=== PATIENT | male | born 1965 | race African-American/Black ===

== ENCOUNTER 2018-07-06 09:29 | Inpatient (IN) | payer OTHER ==
[2018-07-06 09:49] VITALS: BMI 25.4
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
[2018-07-06] MEDS ORDERED: hydrOXYzine PAMOATE 25 MG CAPSULE (FP) PO PRN (11:48)
[2018-07-06] MEDS ORDERED: chlordiazePOXIDE HCL 10 MG CAPSULE PO PRN (11:48)
[2018-07-06] MEDS ORDERED: MAGNESIUM CITRATE 300 ML BOTTLE PO PRN (11:48)
[2018-07-06] MEDS ORDERED: MENTHOL/PHENOL 1 EACH UD MM PRN (11:48)
[2018-07-06] MEDS ORDERED: ACETAMINOPHEN 325 MG TABLET (FP) PO PRN ×2 (11:48)
[2018-07-06] MEDS ORDERED: MAG HYDROX/AL HYDROX/SIMETH 30 ML UNIT-DOSE CUP PO PRN (11:48)
[2018-07-06] MEDS ORDERED: METHOCARBAMOL 500 MG TABLET PO PRN (11:48)
[2018-07-06] MEDS ORDERED: MELATONIN 5 MG TABLETS PO PRN (11:48)
[2018-07-06] MEDS ORDERED: BISMUTH SUBSALICYLATE 524 MG/30 ML UD PO PRN (11:48)
[2018-07-06] MEDS ORDERED: MAGNESIUM HYDROX 2400MG/30ML ORAL SUSPENSION 30 ML CUP PO PRN (11:48)
[2018-07-06] MEDS ORDERED: IBUPROFEN 400 MG TABLET (FP) PO PRN (11:48)
[2018-07-06] MEDS: THIAMINE HCL 100 MG TABLET (FP) PO SCH (22:59)
[2018-07-06] MEDS: chlordiazePOXIDE HCL 25 MG CAPSULE PO SCH (22:59)
[2018-07-07] MEDS: chlordiazePOXIDE HCL 25 MG CAPSULE PO SCH ×2 (05:09→14:07)
[2018-07-07] MEDS ORDERED: PRENATAL VITAMINS W/ FOLIC ACID TABLET (FP) PO SCH (10:00)
[2018-07-07 10:16] LABS: HEMATOCRIT 40.1 % (35.4-49); HEMOGLOBIN 13.9 GM/dL (11.7-16.9); MCH 35.1 pg (25.7-33.7); MCHC 34.7 g/dl (32.0-35.9); MEAN CELL VOLUME 101.1 fl (80-96); MEAN PLT VOLUME 10.3 fl (7.5-11.1); PLATELET COUNT 165 K/MM3 (134-434); RBC 3.96 M/mm3 (4.00-5.60); RDW 13.2 % (11.9-15.9); WHITE BLOOD COUNT 4.6 K/mm3 (4.0-10.0)
[2018-07-07 10:51] LABS: ALBUMIN 3.9 g/dl (3.4-5.0); ALK PHOS 114 U/L (45-117); ANION GAP 8 MMOL/L (8-16); BILIRUBIN,TOTAL 0.5 mg/dL (0.2-1); BLOOD UREA NITROGEN 21 mg/dL (7-18); CALCIUM 8.6 mg/dL (8.5-10.1); CHLORIDE 103 mmol/L (98-107); CO2 28 mmol/L (21-32); CREATININE 1.1 mg/dL (0.55-1.3); GLUCOSE,RANDOM 110 mg/dL (74-106); POTASSIUM 4.1 mmol/L (3.5-5.1); SGOT/AST 14 U/L (15-37); SGPT/ALT 15 U/L (13-61); SODIUM 138 mmol/L (136-145); TOT PROT 7.4 g/dl (6.4-8.2)
--- NOTE | 2018-07-07 13:36 | PN ---
[facility] CIWA - CIWA Score Nausea/Vomitin-No Nausea/No Vomiting Muscle Tremors: None Anxiety: 3 Agitation: 1-Slight > Activity Paroxysmal Sweats: 3 Orientation: 0-Oriented Tacttile Disturbances: 2-Mild Itch/Numbness/Burn Auditory Disturbances: 0-None Visual Disturbances: 2-Mild Sensitivity Headache: 0-None Present CIWA-Ar Total Score: 11 S Progress Note (SOAP) Subjective: Sweating, Itching, Interrupted Sleep. Objective: PATIENT A & O X 3, OBSERVED AMBULATING ON UNIT. IN NO ACUTE DISTRESS. 07/07/18 13:34 Vital Signs Temperature 97.5 F L 07/07/18 09:35 Pulse Rate 82 07/07/18 09:35 Respiratory Rate 18 07/07/18 09:35 Blood Pressure 131/83 07/07/18 09:35 O2 Sat by Pulse Oximetry (%) Laboratory Tests 07/07/18 07/07/18 07/07/18 07:40 07:40 07:40 WBC 4.6 RBC 3.96 L Hgb 13.9 Hct 40.1 MCV 101.1 H MCH 35.1 H MCHC 34.7 RDW 13.2 Plt Count 165 MPV 10.3 Sodium 138 Potassium 4.1 Chloride 103 Carbon Dioxide 28 Anion Gap 8 BUN 21 H Creatinine 1.1 Creat Clearance w eGFR > 60 Random Glucose 110 H Calcium 8.6 Total Bilirubin 0.5 AST 14 L ALT 15 Alkaline Phosphatase 114 Total Protein 7.4 Albumin 3.9 HIV 1&2 Antibody Screen Negative HIV P24 Antigen Negative LABS NOTED. RPR RESULT PENDING. 07/07/18 13:34 Assessment: 07/07/18 13:34 WITHDRAWAL SYMPTOMS. Plan: CONTINUE DETOX. INCREASE DAILY PO FLUID INTAKE. PATIENT REPORTS THAT HE IS TOLERATING CURRENT WITHDRAWAL / DETOX SYMPTOMS WELL THUS FAR. AT PATIENT'S REQUEST, CURRENT DETOX MEDICATION REGIMEN (LIBRIUM) MODIFIED SO THAT PATIENT MAY BE DISCHARGED ON 07/09/2018.
[2018-07-07 19:43] LABS: URINE APPEARANCE CLEAR; URINE BILIRUBIN NEGATIVE (<2.0 mg/dL); URINE COLOR YELLOW; URINE GLUCOSE (UA) NEGATIVE (NEGATIVE); URINE KETONE NEGATIVE (NEGATIVE); URINE LEUK ESTERASE NEGATIVE (NEGATIVE); URINE NITRITE NEGATIVE (NEGATIVE); URINE PROTEIN NEGATIVE (NEGATIVE); URINE UROBILINOGEN 4.0 E.U/dl mg/dL (0.2-1.0)
[2018-07-07] MEDS: chlordiazePOXIDE 5 MG CAPSULE PO SCH (22:39)
[2018-07-07] MEDS: THIAMINE HCL 100 MG TABLET (FP) PO SCH (22:39)
[2018-07-08] MEDS: chlordiazePOXIDE 5 MG CAPSULE PO SCH (05:43)
[2018-07-08] MEDS ORDERED: ALBUTEROL SO4 8 GM HFA INHALER IH PRN (08:48)
[2018-07-08 09:29] VITALS: BP 126/85; PULSE 97; TEMP 98.6
--- NOTE | 2018-07-08 11:47 | PN ---
[facility] CIWA - CIWA Score Nausea/Vomitin-No Nausea/No Vomiting
--- NOTE | 2018-07-08 11:48 | DS ---
[facility] Detox Discharge Summary Admission Date: 07/06/18 Discharge Date: 07/08/18 - History Present History: Alcohol Dependence Additional Comments: 52 years old male admitted on 07/06/18 for alcohol withdrawal stabilization feeling better today preferred return home today - Physical Exam Results Vital Signs: Vital Signs Temperature 98.6 F 07/08/18 09:28 Pulse Rate 97 H 07/08/18 09:28 Respiratory Rate 20 07/08/18 09:28 Blood Pressure 126/85 07/08/18 09:28 O2 Sat by Pulse Oximetry (%) Laboratory Last Values WBC 4.6 K/mm3 (4.0-10.0) 07/07/18 07:40 RBC 3.96 M/mm3 (4.00-5.60) L 07/07/18 07:40 Hgb 13.9 GM/dL (11.7-16.9) 07/07/18 07:40 Hct 40.1 % (35.4-49) 07/07/18 07:40 MCV 101.1 fl (80-96) H 07/07/18 07:40 MCH 35.1 pg (25.7-33.7) H 07/07/18 07:40 MCHC 34.7 g/dl (32.0-35.9) 07/07/18 07:40 RDW 13.2 % (11.9-15.9) 07/07/18 07:40 Plt Count 165 K/MM3 (134-434) 07/07/18 07:40 MPV 10.3 fl (7.5-11.1) 07/07/18 07:40 Sodium 138 mmol/L (136-145) 07/07/18 07:40 Potassium 4.1 mmol/L (3.5-5.1) 07/07/18 07:40 Chloride 103 mmol/L (98-107) 07/07/18 07:40 Carbon Dioxide 28 mmol/L (21-32) 07/07/18 07:40 Anion Gap 8 MMOL/L (8-16) 07/07/18 07:40 BUN 21 mg/dL (7-18) H 07/07/18 07:40 Creatinine 1.1 mg/dL (0.55-1.3) 07/07/18 07:40 Creat Clearance w eGFR > 60 (>60) 07/07/18 07:40 Random Glucose 110 mg/dL (74-106) H 07/07/18 07:40 Calcium 8.6 mg/dL (8.5-10.1) 07/07/18 07:40 Total Bilirubin 0.5 mg/dL (0.2-1) 07/07/18 07:40 AST 14 U/L (15-37) L 07/07/18 07:40 ALT 15 U/L (13-61) 07/07/18 07:40 Alkaline Phosphatase 114 U/L (45-117) 07/07/18 07:40 Total Protein 7.4 g/dl (6.4-8.2) 07/07/18 07:40 Albumin 3.9 g/dl (3.4-5.0) 07/07/18 07:40 Urine Color Yellow 07/07/18 14:45 Urine Appearance Clear 07/07/18 14:45 Urine pH 5.0 (5.0-8.0) 07/07/18 14:45 Ur Specific [place] 1.027 (1.010-1.035) 07/07/18 14:45 Urine Protein Negative (NEGATIVE) 07/07/18 14:45 Urine Glucose (UA) Negative (NEGATIVE) 07/07/18 14:45 Urine Ketones Negative (NEGATIVE) 07/07/18 14:45 Urine Blood Negative (NEGATIVE) 07/07/18 14:45 Urine Nitrite Negative (NEGATIVE) 07/07/18 14:45 Urine Bilirubin Negative (<2.0 mg/dL) 07/07/18 14:45 Urine Urobilinogen 4.0 e.u/dl mg/dL (0.2-1.0) 07/07/18 14:45 Ur Leukocyte Esterase Negative (NEGATIVE) 07/07/18 14:45 RPR Titer Nonreactive (NONREACTIVE) 07/07/18 07:40 HIV 1&2 Antibody Screen Negative 07/07/18 07:40 HIV P24 Antigen Negative 07/07/18 07:40 lab noted Pertinent Admission Physical Exam Findings: alcohol withdrawal sx Laboratory Last Values WBC 4.6 K/mm3 (4.0-10.0) 07/07/18 07:40 RBC 3.96 M/mm3 (4.00-5.60) L 07/07/18 07:40 Hgb 13.9 GM/dL (11.7-16.9) 07/07/18 07:40 Hct 40.1 % (35.4-49) 07/07/18 07:40 MCV 101.1 fl (80-96) H 07/07/18 07:40 MCH 35.1 pg (25.7-33.7) H 07/07/18 07:40 MCHC 34.7 g/dl (32.0-35.9) 07/07/18 07:40 RDW 13.2 % (11.9-15.9) 07/07/18 07:40 Plt Count 165 K/MM3 (134-434) 07/07/18 07:40 MPV 10.3 fl (7.5-11.1) 07/07/18 07:40 Sodium 138 mmol/L (136-145) 07/07/18 07:40 Potassium 4.1 mmol/L (3.5-5.1) 07/07/18 07:40 Chloride 103 mmol/L (98-107) 07/07/18 07:40 Carbon Dioxide 28 mmol/L (21-32) 07/07/18 07:40 Anion Gap 8 MMOL/L (8-16) 07/07/18 07:40 BUN 21 mg/dL (7-18) H 07/07/18 07:40 Creatinine 1.1 mg/dL (0.55-1.3) 07/07/18 07:40 Creat Clearance w eGFR > 60 (>60) 07/07/18 07:40 Random Glucose 110 mg/dL (74-106) H 07/07/18 07:40 Calcium 8.6 mg/dL (8.5-10.1) 07/07/18 07:40 Total Bilirubin 0.5 mg/dL (0.2-1) 07/07/18 07:40 AST 14 U/L (15-37) L 07/07/18 07:40 ALT 15 U/L (13-61) 07/07/18 07:40 Alkaline Phosphatase 114 U/L (45-117) 07/07/18 07:40 Total Protein 7.4 g/dl (6.4-8.2) 07/07/18 07:40 Albumin 3.9 g/dl (3.4-5.0) 07/07/18 07:40 Urine Color Yellow 07/07/18 14:45 Urine Appearance Clear 07/07/18 14:45 Urine pH 5.0 (5.0-8.0) 07/07/18 14:45 Ur Specific [place] 1.027 (1.010-1.035) 07/07/18 14:45 Urine Protein Negative (NEGATIVE) 07/07/18 14:45 Urine Glucose (UA) Negative (NEGATIVE) 07/07/18 14:45 Urine Ketones Negative (NEGATIVE) 07/07/18 14:45 Urine Blood Negative (NEGATIVE) 07/07/18 14:45 Urine Nitrite Negative (NEGATIVE) 07/07/18 14:45 Urine Bilirubin Negative (<2.0 mg/dL) 07/07/18 14:45 Urine Urobilinogen 4.0 e.u/dl mg/dL (0.2-1.0) 07/07/18 14:45 Ur Leukocyte Esterase Negative (NEGATIVE) 07/07/18 14:45 RPR Titer Nonreactive (NONREACTIVE) 07/07/18 07:40 HIV 1&2 Antibody Screen Negative 07/07/18 07:40 HIV P24 Antigen Negative 07/07/18 07:40 lab noted patient received 30 days medications from primary care provider on 06/29/18 - Treatment Hospital Course: Detox Protocol Followed, Detoxed Safely, Responded well, Discharged Condition Good, Rehab Referral Accepted Patient has Accepted a Rehab Referral to: [facility] - Medication Discharge Medications: Ambulatory Orders Losartan/Hydrochlorothiazide [Losartan-Hctz 100-25 mg Tab] 1 each PO DAILY 07/06 Mirtazapine 15 mg PO HS 07/06/18 Albuterol Sulfate Inhaler - [Ventolin HFA Inhaler -] 2 inh PO Q4H PRN #1 inhaler 07/08/18 Nifedipine [Procardia Xl] 90 mg PO DAILY #14 tab.er.24 07/08/18 Rosuvastatin [Crestor -] 10 mg PO HS #14 tablet 07/08/18 - Diagnosis (1) Alcohol dependence with uncomplicated withdrawal Status: Acute (2) COPD (chronic obstructive pulmonary disease) Status: Chronic Qualifiers: COPD type: emphysema Emphysema type: panlobular Qualified Code(s): J43.1 - Panlobular emphysema (3) HTN (hypertension) Status: Chronic Qualifiers: Hypertension type: essential hypertension Qualified Code(s): I10 - Essential (primary) hypertension (4) Nicotine dependence Status: Acute Qualifiers: Nicotine product type: cigarettes Substance use status: in withdrawal Qualified Code(s): F17.213 - Nicotine dependence, cigarettes, with withdrawal - AMA Did Patient Leave Against Medical Advice: No
--- NOTE | 2018-07-08 11:58 | EKG ---
Test Reason : Blood Pressure : / mmHG Vent. Rate : 073 BPM Atrial Rate : 073 BPM P-R Int : 162 ms QRS Dur : 104 ms QT Int : 386 ms P-R-T Axes : 063 057 049 degrees QTc Int : 425 ms NORMAL SINUS RHYTHM NORMAL ECG WHEN COMPARED WITH ECG OF 18-MAY-2012 16:11, CRITERIA FOR SEPTAL INFARCT ARE NO LONGER PRESENT NONSPECIFIC T WAVE ABNORMALITY NO LONGER EVIDENT IN ANTERIOR LEADS Confirmed by MARIAM BECKWITH, ALLISON ([id number]) on 07/08/2018 11:57:39 AM Referred By: Confirmed By:ALLISON BECERRA MD
[2018-07-08] MEDS ORDERED: chlordiazePOXIDE HCL 10 MG CAPSULE PO SCH ×2 (13:00→21:00)
[2018-07-08] MEDS ORDERED: chlordiazePOXIDE HCL 10 MG CAPSULE PO PRN (21:00)
== END 2018-07-08 09:30 | disposition home or self-care (01) | DRG 775 ==
LOC: YASAS 09:29 → Y3N 11:49
PROVIDERS: ADMIT Surgery; ATTEND Surgery
PROC: HZ2ZZZZ Detoxification Services for Substance Abuse Treatment (ICD-10-PCS; principal; 2018-07-06)
DX: F10.230 Alcohol dependence with withdrawal, uncomplicated (principal); F12.90 Cannabis use, unspecified, uncomplicated; F17.213 Nicotine dependence, cigarettes, with withdrawal; I10 Essential (primary) hypertension; J43.1 Panlobular emphysema; E78.00 Pure hypercholesterolemia, unspecified
CPT/HCPCS: 36415; 80053; 81003; 85027; 86593; 87389; 93005; 93010